=== PATIENT | male | born 1945 | race Caucasian/White ===

== ENCOUNTER 2017-08-21 11:46 | Inpatient (IN) | payer OTHER ==
[2017-08-21 12:15] VITALS: BMI 24.0
--- NOTE | 2017-08-21 12:23 | PDOC ---
History of Present Illness - General Stated Complaint: TRACH CHANGE Time Seen by Provider: 08/21/17 12:11
[2017-08-21 13:24] LABS: BASO % 1.3 % (0-2.0); HEMATOCRIT 36.4 % (35.4-49); HEMOGLOBIN 12.1 GM/dL (11.7-16.9); LYMPH % 24.8 % (8-40); MCH 30.7 pg (25.7-33.7); MCHC 33.3 g/dl (32.0-35.9); MEAN CELL VOLUME 92.3 fl (80-96); MEAN PLT VOLUME 8.4 fl (7.5-11.1); MONO % 6.8 % (3.8-10.2); NEUT % 61.1 % (42.8-82.8); PLATELET COUNT 425 K/MM3 (134-434); RBC 3.95 M/mm3 (4.00-5.60); VENOUS PH 7.39 (7.32-7.42); WHITE BLOOD COUNT 10.2 K/mm3 (4.0-10.0)
[2017-08-21 13:25] LABS: VENOUS PC02 49.7 mmHg (38-52); VENOUS PO2 21.6 mmHg (28-48)
[2017-08-21 13:37] LABS: INR 1.12 (0.82-1.09); PROTHROMBIN TIME (PATIENT) 12.6 SEC (9.98-11.88)
[2017-08-21 13:39] LABS: ACTIVATED PTT 32.9 SECONDS (26.9-34.4)
[2017-08-21 13:52] LABS: ALBUMIN 2.7 g/dl (3.4-5.0); ANION GAP 8 (8-16); BILIRUBIN,TOTAL 0.2 mg/dL (0.2-1.0); BLOOD UREA NITROGEN 23 mg/dL (7-18); CALCIUM 8.9 mg/dL (8.5-10.1); CHLORIDE 100 mmol/L (98-107); CO2 30 mmol/L (21-32); CREATININE 0.6 mg/dL (0.7-1.3); GLUCOSE,RANDOM 97 mg/dL (74-106); POTASSIUM 4.5 mmol/L (3.5-5.1); SGOT/AST 26 U/L (15-37); SGPT/ALT 49 U/L (12-78); SODIUM 138 mmol/L (136-145); TOT PROT 7.6 g/dl (6.4-8.2)
[2017-08-21 13:54] LABS: ALK PHOS 114 U/L (45-117)
--- NOTE | 2017-08-21 14:03 | PDOC ---
History of Present Illness <Slick Verdin - Last Filed: 08/21/17 15:25> - General History Source: Patient Exam Limitations: No Limitations - History of Present Illness Initial Comments: 08/21/17 15:05 The patient is a 72 year old male resident from [facility], with a significant past medical history of COPD, BPH, s/p PEG and Tracheostomy tube who presents to the emergency department with drainage from trach tube. Patient is nonverbal and is unable to provide history. As per snf records, patient has purulent yellow discharge from trach site. Upon evaluation, patient is requiring frequent suctioning. Allergies: NKA Past surgical history: Tracheostomy/Peg Tube placement. Social history: None PCP: Dr. Gonzalez <Leatha Em - Last Filed: 08/21/17 15:28> - General Chief Complaint: Trach Tube Replacement Stated Complaint: TRACH CHANGE Time Seen by Provider: 08/21/17 12:11 Past History - Past Medical History COPD: Yes Other medical history: BPH - Suicide/Smoking/Psychosocial Hx Smoking History: Unknown if ever smoked Have you smoked in the past 12 months: No Information on smoking cessation initiated: No Hx Alcohol Use: No Drug/Substance Use Hx: No Substance Use Type: None <Slick Verdin - Last Filed: 08/21/17 15:25> <Leatha Em - Last Filed: 08/21/17 15:28> - Past Medical History Allergies/Adverse Reactions: Allergies Allergy/AdvReac Type Severity Reaction Status Date / Time No Known Allergies Allergy Verified 08/21/17 12:35 Home Medications: Ambulatory Orders Acetylcysteine 20% [Mucomyst] 200 mg IH BID 08/21/17 Albuterol 2.5/Ipratropium 0.5 [Duoneb -] 1 neb NEB Q4H 08/21/17 Aspirin 81 mg PEG DAILY 08/21/17 Heparin - 5,000 unit SQ BID 08/21/17 Lactulose 10 gm PEG HS 08/21/17 Review of Systems - Review of Systems Able to Perform ROS?: No (nonverbal) <Slick Verdin - Last Filed: 08/21/17 15:25> *Physical Exam - Vital Signs Last Vital Signs Temp Pulse Resp BP Pulse Ox 99.3 F 84 22 110/78 98 08/21/17 13:08 02/01/18 13:27 08/21/17 13:27 08/21/17 13:27 08/21/17 13:27 <Slick Verdin - Last Filed: 08/21/17 15:25> - Vital Signs Last Vital Signs Temp Pulse Resp BP Pulse Ox 99.3 F 83 18 142/90 98 08/21/17 13:08 08/21/17 14:27 08/21/17 14:27 08/21/17 14:27 08/21/17 14:27 - Physical Exam Comments: 08/21/17 15:06 GENERAL: The patient is awake, alert, and fully oriented, in no acute distress. +Nonverbal with contractures sent from snf. HEAD: Normal with no signs of trauma. EYES: Pupils equal, round and reactive to light, extraocular movements intact, sclera anicteric, conjunctiva clear with no pallor. ENT: Ears normal, nares patent, oropharynx clear without exudates. Moist mucous membranes. NECK: +Trach site is clean dry with purulent drainage from within the trach site requiring suction. Normal range of motion, supple without lymphadenopathy, JVD, or masses. LUNGS: +coarse breath sounds from bilateral bases more. Greater on right side than left. Breath sounds equal, clear to auscultation bilaterally. No wheeze/ crackles. HEART: Regular rate and rhythm, normal S1 and S2 without murmur or rub. ABDOMEN: +1-2 cm skin irritation. No evidence of cellulitis. Superficial subcutaneous ecchymosis along abdomen from injection sites. Soft/nontender/ nondistended. BS wnl. No guarding or rebound. No palpable masses. No hepatosplenomegaly. EXTREMITIES: Normal range of motion, no edema. No clubbing or cyanosis. No cords, erythema, or tenderness. NEUROLOGICAL: Cranial nerves II through XII grossly intact. Normal speech. PSYCH: Normal mood, normal affect. SKIN: Warm, Dry, normal turgor, no rashes or lesions noted. <Leatha Em - Last Filed: 08/21/17 15:28> Heart Score/ECG Review #1 ECG reviewed & interpreted by me at: 14:56 General ECG Interpretation: Sinus Rhythm, Normal Rate (84), Normal Intervals ( qtc 460), No acute ischemic changes <Slick Verdin - Last Filed: 08/21/17 15:25> ED Treatment Course - LABORATORY CBC & Chemistry Diagram: 08/21/17 13:10 08/21/17 13:10 - ADDITIONAL ORDERS Additional order review: Laboratory Results 08/21/17 08/21/17 13:10 13:10 PT with INR 12.60 H INR 1.12 PTT (Actin FS) 32.9 VBG pH 7.39 POC VBG pCO2 49.7 POC VBG pO2 21.6 L Mixed VBG HCO3 29.6 H 08/21/17 13:10 RBC 3.95 L MCV 92.3 MCHC 33.3 RDW 14.0 MPV 8.4 Neutrophils % 61.1 Lymphocytes % 24.8 Monocytes % 6.8 Eosinophils % 6.0 H Basophils % 1.3 - RADIOLOGY Radiology Studies Ordered: Category Date Time Status CHEST X-RAY PORTABLE* [RAD] Stat Radiology 08/21/17 13:06 Taken <Slick Verdin - Last Filed: 08/21/17 15:25> - LABORATORY CBC & Chemistry Diagram: 08/21/17 13:10 08/21/17 13:10 - ADDITIONAL ORDERS Additional order review: Laboratory Results 08/21/17 08/21/17 08/21/17 13:10 13:10 13:10 PT with INR INR PTT (Actin FS) VBG pH 7.39 POC VBG pCO2 49.7 POC VBG pO2 21.6 L Mixed VBG HCO3 29.6 H Sodium 138 Potassium 4.5 Chloride 100 Carbon Dioxide 30 Anion Gap 8 BUN 23 H Creatinine 0.6 L Creat Clearance w eGFR > 60 Random Glucose 97 Lactic Acid 1.3 Calcium 8.9 Total Bilirubin 0.2 AST 26 ALT 49 Alkaline Phosphatase 114 Creatine Kinase 81 Troponin I < 0.02 Total Protein 7.6 Albumin 2.7 L 08/21/17 13:10 PT with INR 12.60 H INR 1.12 PTT (Actin FS) 32.9 VBG pH POC VBG pCO2 POC VBG pO2 Mixed VBG HCO3 Sodium Potassium Chloride Carbon Dioxide Anion Gap BUN Creatinine Creat Clearance w eGFR Random Glucose Lactic Acid Calcium Total Bilirubin AST ALT Alkaline Phosphatase Creatine Kinase Troponin I Total Protein Albumin 08/21/17 13:10 RBC 3.95 L MCV 92.3 MCHC 33.3 RDW 14.0 MPV 8.4 Neutrophils % 61.1 Lymphocytes % 24.8 Monocytes % 6.8 Eosinophils % 6.0 H Basophils % 1.3 <Leatha Em - Last Filed: 08/21/17 15:28> Medical Decision Making - Medical Decision Making 08/21/17 14:01 A portion of this note was documented by scribe services under my direction. I have reviewed the details of the note, within reason, and agree with the documentation with the following case summary and management plan written by me. 72-year-old male from snf bedbound, trach/panic and nonverbal sent for evaluation of purulent discharge from trach. Low-grade temp Course breath sounds Requiring frequent suctioning but O2 sats are within normal limits Sepsis protocol initiated Antibiotics as dictated by findings Likely admission 08/21/17 15:00 White count 10.2 with normal differential. Chest x-ray shows bibasilar atelectasis without acute infiltrate. Chemistries are within normal limits, including normal lactate. We'll speak with sending physician from [facility] regarding disposition and ability to give IV antibiotics at the snf. 08/21/17 15:25 Discussed with [facility] medical resident Dr. Gonzalez, states pt had copious bleeding from trach and requests bronchoscopy. Accepted for obs med/surg by Dr. Hoyos, he will consult Dr. malik . <Slick Verdin - Last Filed: 08/21/17 15:25> - Medical Decision Making 08/21/17 15:[address] [facility] to discuss case. Discharge to snf nurse Mandy Frederick. Discussed case with nurse. 08/21/17 15:08 Contacted [facility] physician-- Dr. Gonzalez at [phone]. 08/21/17 15:[address] Gonzalez at [phone] Discussed patient's case. 08/21/17 15:[address] case Dr[address] Hoyos. Will admit patient to Med Surg. <Leatha Em - Last Filed: 08/21/17 15:28> *DC/Admit/Observation/Transfer - Discharge Dispostion Admit: Yes <Slick Verdin - Last Filed: 08/21/17 15:25> <Leatha Em - Last Filed: 08/21/17 15:28> Diagnosis at time of Disposition: Tracheostomy infection - Discharge Dispostion Condition at time of disposition: Fair - Referrals Referrals: Mansoor Gonzalez MD [Primary Care Provider] - - Patient Instructions - Post Discharge Activity
[2017-08-21] MEDS ORDERED: ACETAMINOPHEN 325 MG TABLET (FP) PO PRN (16:48)
--- NOTE | 2017-08-21 17:09 | HP ---
Admitting History and Physical - Primary Care Physician PCP: Negro Hoyos - Admission History of Present Illness: The patient is a 72 year old male resident from [facility], with a significant past medical history of COPD, BPH, s/p PEG and Tracheostomy tube who presents to the emergency department with drainage from trach tube. Patient is nonverbal and is unable to provide history. As per [facility] records, patient has purulent yellow discharge and blood coming from trach site. Upon evaluation, patient is requiring frequent suctioning. Case Discussed with er physician Pt seen by me in er Lethargic / non verbal. poorly responsive but comfortable vitals stable saturating well now after frequent suctioning. History Source: Medical Record Limitations to Obtaining History: Clinical Condition - Smoking History Smoking history: Unknown if ever smoked Have you smoked in the past 12 months: No - Alcohol/Substance Use Hx Alcohol Use: No Home Medications - Allergies Allergies/Adverse Reactions: Allergies Allergy/AdvReac Type Severity Reaction Status Date / Time No Known Allergies Allergy Verified 08/21/17 12:35 - Home Medications Home Medications: Ambulatory Orders Acetylcysteine 20% [Mucomyst] 200 mg IH BID 08/21/17 Albuterol 2.5/Ipratropium 0.5 [Duoneb -] 1 neb NEB Q4H 08/21/17 Aspirin 81 mg PEG DAILY 08/21/17 Heparin - 5,000 unit SQ BID 08/21/17 Lactulose 10 gm PEG HS 08/21/17 Review of Systems Findings/Remarks: unable to do --clinical condition - Review of Systems Constitutional: reports: Lethargy Neck: reports: Other (s/p trach) Cardiovascular: reports: No Symptoms Respiratory: reports: Other Gastrointestinal: reports: Other (soft/ g tube +) Neurological: reports: Other (contracted) Physical Examination Vital Signs: Vital Signs Temperature 99.3 F 08/21/17 13:08 Pulse Rate 86 08/21/17 16:42 Respiratory Rate 20 08/21/17 16:42 Blood Pressure 139/85 08/21/17 16:42 O2 Sat by Pulse Oximetry (%) 99 08/21/17 16:42 Constitutional: Yes: No Distress, Other (letargic/ poorly responsive) Neck: Yes: Other (s/p trach) Cardiovascular: Yes: Regular Rate and Rhythm Respiratory: Yes: Other (bilateral breaths sounds.) Gastrointestinal: Yes: Soft, Other Extremities: Yes: Other (contracted) Edema: No Neurological: Yes: Other (lethargic/ non verbal) Labs: CBC, BMP 08/21/17 13:10 08/21/17 13:10 Imaging - Results Chest X-ray: Report Reviewed Problem List - Problems (1) PEG (percutaneous endoscopic gastrostomy) status Code(s): Z93.1 - GASTROSTOMY STATUS (2) Tracheostomy infection Code(s): J95.02 - INFECTION OF TRACHEOSTOMY STOMA Assessment/Plan Abx frequent suctioning pulmonary consult f/u cultures will not give heparin for dvt prophylaxis at present condition gaurded but stable will follow .
[2017-08-22 08:19] LABS: INR 1.22 (0.82-1.09); PROTHROMBIN TIME (PATIENT) 13.8 SEC (9.98-11.88)
[2017-08-22 08:33] LABS: BASO % 0.7 % (0-2.0); EOS % 0.4 % (0-4.5); HEMOGLOBIN 11.4 GM/dL (11.7-16.9); LYMPH % 14.6 % (8-40); MCHC 32.6 g/dl (32.0-35.9); MEAN CELL VOLUME 91.9 fl (80-96); MEAN PLT VOLUME 8.5 fl (7.5-11.1); MONO % 6.3 % (3.8-10.2); PLATELET COUNT 458 K/MM3 (134-434); RBC 3.81 M/mm3 (4.00-5.60); RDW 14.1 % (11.9-15.9); WHITE BLOOD COUNT 13.3 K/mm3 (4.0-10.0)
[2017-08-22 08:48] LABS: ALBUMIN 2.5 g/dl (3.4-5.0); ANION GAP 7 (8-16); BLOOD UREA NITROGEN 28 mg/dL (7-18); CALCIUM 8.4 mg/dL (8.5-10.1); CHLORIDE 102 mmol/L (98-107); CO2 27 mmol/L (21-32); CREATININE 0.7 mg/dL (0.7-1.3); GLUCOSE,RANDOM 104 mg/dL (74-106); POTASSIUM 4.4 mmol/L (3.5-5.1); SGOT/AST 35 U/L (15-37); SGPT/ALT 47 U/L (12-78); SODIUM 136 mmol/L (136-145)
[2017-08-22 08:51] LABS: ALK PHOS 91 U/L (45-117); BILIRUBIN,TOTAL 0.5 mg/dL (0.2-1.0); TOT PROT 6.5 g/dl (6.4-8.2)
--- NOTE | 2017-08-22 10:10 | EKG ---
Test Reason : Blood Pressure : / mmHG Vent. Rate : 084 BPM Atrial Rate : 084 BPM P-R Int : 000 ms QRS Dur : 094 ms QT Int : 390 ms P-R-T Axes : 000 -28 018 degrees QTc Int : 460 ms POOR DATA QUALITY, INTERPRETATION MAY BE ADVERSELY AFFECTED NORMAL SINUS RHYTHM ABNORMAL ECG NO PREVIOUS ECGS AVAILABLE Confirmed by PEGGY LOCKWOOD MD ([id number]) on 08/22/2017 10:10:15 AM Referred By: Confirmed By:PEGGY LOCKWOOD MD
--- NOTE | 2017-08-22 10:28 | PN ---
Progress Note (short form) - Note Progress Note: pt seen/ examined comfortable. non verbal. low grade temp. feeding held last night -- due to brownish fluid content guiac +ve Vital Signs Temp 99.7 F H 08/22/17 06:00 Pulse 86 08/22/17 08:21 Resp 20 08/22/17 06:00 BP 152/78 08/22/17 06:00 Pulse Ox 97 08/22/17 08:21 Intake & Output 08/21/17 08/21/17 08/22/17 11:59 23:59 11:59 Intake Total 100 Output Total 200 Balance -100 Weight 167 lb 12.8 oz 172 lb 9.6 oz Intake: Tube Irrigant 100 Output: Gastric Drainage 200 Other: Voiding Method Incontinent # Unmeasured Voids Void 1 Height 5 ft 10 in Body Mass Index (BMI) 24.0 Weight Measurement Method Patient Lift Scale Active Medications Acetaminophen (Tylenol -) 650 mg PO Q4H PRN PRN Reason: BACK PAIN Albuterol Sulfate (Ventolin 0.083% Nebulizer Soln -) 1 amp NEB Q4H PRN PRN Reason: SHORT OF BREATH/WHEEZING Fludrocortisone Acetate (Florinef -) 0.1 mg PEG DAILY SCOTT Levofloxacin (Levaquin 500 Mg Premixed Ivpb -) 500 mg in 100 mls @ 100 mls/hr IVPB DAILY SCOTT Last Admin: 08/21/17 17:10 Dose: 100 mls/hr CBC, BMP 08/22/17 07:30 08/22/17 07:30 Abnormal Lab Results 08/21/17 08/21/17 08/21/17 13:10 13:10 13:10 WBC 10.2 H RBC 3.95 L Hgb Hct Plt Count Eosinophils % 6.0 H PT with INR 12.60 H INR POC VBG pO2 21.6 L Mixed VBG HCO3 29.6 H Anion Gap BUN Creatinine Calcium Albumin 08/21/17 08/22/17 08/22/17 13:10 07:30 07:30 WBC 13.3 H D RBC 3.81 L Hgb 11.4 L Hct 35.0 L Plt Count 458 H Eosinophils % PT with INR 13.80 H INR 1.22 H POC VBG pO2 Mixed VBG HCO3 Anion Gap BUN 23 H Creatinine 0.6 L Calcium Albumin 2.7 L 08/22/17 07:30 WBC RBC Hgb Hct Plt Count Eosinophils % PT with INR INR POC VBG pO2 Mixed VBG HCO3 Anion Gap 7 L BUN 28 H D Creatinine Calcium 8.4 L Albumin 2.5 L Physical Examination Constitutional: Yes: No Distress, awake/ non verbal. dont follow commands Neck: Yes: Other (s/p trach)-- trach collar Cardiovascular: Yes: Regular Rate and Rhythm Respiratory: Yes: Other (bilateral breaths sounds.) Gastrointestinal: Yes: Soft, s/p peg Extremities: Yes: Other (contracted)- right heel/ foot - ulcer + Edema: No Neurological: Yes: Non verbal. contracted Assessment/Plan Abx increased wbcs frequent suctioning pulmonary consult - pending f/u cultures gi bleed heparin on hold hold feeding for now will consult gi and i/d would care consult local care. will follow. . Problem List - Problems (1) PEG (percutaneous endoscopic gastrostomy) status Code(s): Z93.1 - GASTROSTOMY STATUS (2) Tracheostomy infection Code(s): J95.02 - INFECTION OF TRACHEOSTOMY STOMA
[2017-08-22] MEDS: D5-1/2NS+20 MEQ KCL - 20 MEQ/1,000 ML INFUS.BAG IV SCH ×2 (11:50→22:41)
[2017-08-22] MEDS: ALBUTEROL SO4 0.083% IH SOL 2.5 MG/3 ML VIAL.NEB. NEB PRN (12:05)
--- NOTE | 2017-08-22 13:10 | CON.ID ---
Consult Consult Specialty:: infectious disease Referred by:: dr hoyos Reason for Consultation:: trach infection - History of Present Illness Chief Complaint: 72 year old mn NHR nonverbal with trach/gt. noted to have thick tracheal bloody secretions and bleeding from trach site History of Present Illness: transferred fro bleeding from trach site has thick bloody secretions low grade temperature today with wbc of 13k - History Source History Provided By: Medical Record Limitations to Obtaining History: Clinical Condition - Past Medical History Pulmonary: Yes: COPD Renal/: Yes: BPH - Alcohol/Substance Use Hx Alcohol Use: No - Smoking History Smoking history: Unknown if ever smoked Have you smoked in the past 12 months: No - Social History Usual Living Arrangement: Retirement Home Medications - Allergies Allergies/Adverse Reactions: Allergies Allergy/AdvReac Type Severity Reaction Status Date / Time No Known Allergies Allergy Verified 08/21/17 12:35 - Home Medications Home Medications: Ambulatory Orders Acetylcysteine 20% [Mucomyst] 200 mg IH BID 08/21/17 Albuterol 2.5/Ipratropium 0.5 [Duoneb -] 1 neb NEB Q4H 08/21/17 Aspirin 81 mg PEG DAILY 08/21/17 Heparin - 5,000 unit SQ BID 08/21/17 Lactulose 10 gm PEG HS 08/21/17 Family Disease History - Family Disease History Family History: Unable to Obtain Physical Exam Vital Signs: Vital Signs Temperature 99.7 F H 08/22/17 06:00 Pulse Rate 86 08/22/17 08:21 Respiratory Rate 20 08/22/17 06:00 Blood Pressure 152/78 08/22/17 06:00 O2 Sat by Pulse Oximetry (%) 97 08/22/17 08:21 Constitutional: Yes: No Distress, Calm Eyes: Yes: WNL HENT: Yes: Atraumatic, Normocephalic Neck: Yes: Trachea Midline, Other (trach with bloody thick secretions) Cardiovascular: Yes: Regular Rate and Rhythm Respiratory: Yes: CTA Bilaterally Gastrointestinal: Yes: Normal Bowel Sounds, Soft, Other (+gt) Extremities: Yes: WNL, Other (contractions of the arms right more then left) Psychiatric: Yes: Alert Labs: CBC, BMP 08/22/17 07:30 08/22/17 07:30 Microbiology 08/21/17 13:10 Blood - Peripheral Venous Blood Culture - Preliminary NO GROWTH OBTAINED AFTER 24 HOURS, INCUBATION TO CONTINUE FOR 4 DAYS. 08/21/17 13:10 Blood - Peripheral Venous Blood Culture - Preliminary NO GROWTH OBTAINED AFTER 24 HOURS, INCUBATION TO CONTINUE FOR 4 DAYS. Imaging - Results Chest X-ray: Report Reviewed, Image Reviewed Problem List - Problems (1) Tracheobronchitis Code(s): J40 - BRONCHITIS, NOT SPECIFIED ACUTE OR CHRONIC (2) COPD (chronic obstructive pulmonary disease) Code(s): J44.9 - CHRONIC OBSTRUCTIVE PULMONARY DISEASE, UNSPECIFIED Assessment/Plan unasyn ENT to see for trach change - d/w Dr Hoyos, will order ENT evaluation COPD GT
--- NOTE | 2017-08-22 13:29 | PN ---
Progress Note (short form) - Note Progress Note: PULMONARY CONSULTATION DICTATED 08/22/17 IMP ACUTE TRACHEOBRONCHITIS S/P TRACH COPD BPH PLAN IV ANTIBIOTICS O2 BRONCHODILATORS CULTURES ENT EVALUATION DR NIELSEN Problem List - Problems (1) Tracheobronchitis Code(s): J40 - BRONCHITIS, NOT SPECIFIED ACUTE OR CHRONIC (2) PEG (percutaneous endoscopic gastrostomy) status Code(s): Z93.1 - GASTROSTOMY STATUS (3) Tracheostomy infection Code(s): J95.02 - INFECTION OF TRACHEOSTOMY STOMA (4) COPD (chronic obstructive pulmonary disease) Code(s): J44.9 - CHRONIC OBSTRUCTIVE PULMONARY DISEASE, UNSPECIFIED
--- NOTE | 2017-08-22 14:12 | CONS ---
DATE OF CONSULTATION: 08/22/2017 REFERRING PHYSICIAN: Negro Hoyos MD HISTORY: The patient is a 72-year-old white male prison resident with a past medical history of chronic obstructive pulmonary disease, history of respiratory failure status post tracheostomy, BPH admitted to [facility] with drainage from the tracheostomy tube. The patient initially was unable to provide any history. [facility], the patient had purulent yellow drainage from the tracheostomy site. He was also noted on arrival to the ER to have increased chronic secretions requiring frequent suctioning. According to the ER records, the patient had copious bleeding from the tracheostomy and was transferred over to request bronchoscopy. No further history is available at this time. PAST MEDICAL HISTORY: Again, includes COPD, BPH, status post PEG, status post tracheostomy. REVIEW OF SYSTEMS: Unable to obtain. CURRENT MEDICATIONS: Include Florinef, Tylenol, Levaquin, albuterol, and potassium chloride. PHYSICAL EXAMINATION: General: The patient is a thin white male well developed, awake, nonverbal in no acute distress. Vital Signs: He is currently afebrile. Temperature 99.7, respiratory rate 20, O2 saturation 97% on tracheostomy collar. HEENT: Normocephalic and atraumatic. Neck: Supple. Heart: Regular S1, S2. Chest: Bilateral rhonchi. Abdomen: Soft. Bowel sounds are positive. Extremities: No cyanosis or edema. LABORATORIES: WBC 13.3, hemoglobin 11.4, hematocrit 35, platelet count 458,000. Venous blood gas 7.39, PCO2 of 49, PO2 of 21, bicarbonate of 29, INR 1.22, BUN 28, creatinine 0.7. Chest x-ray: Right basilar atelectatic changes. No acute infiltrates or effusions. IMPRESSION: 1. Probably tracheobronchitis, tracheitis. 2. History of chronic obstructive pulmonary disease. 3. Status post tracheostomy. 4. Status post percutaneous endoscopic gastrostomy. PLAN: Antibiotics. Pulmonary toilet. Obtain cultures. If the patient should develop tracheal bleeding, would recommend ENT evaluation. LESLEY NIELSEN M.D. [id number]
[2017-08-22] MEDS: AMPICILLIN NA/SULBACTAM NA 1.5 GM in SODIUM CHLORIDE 100 ML IVPB SCH ×2 (15:30→22:40)
[2017-08-22] MEDS ORDERED: PT OWN MED DRAWER 7, Y5N ONE ×3 (15:31→22:29)
--- NOTE | 2017-08-22 17:14 | CON.GI ---
Consult Consult Specialty:: GI Referred by:: Dr Negro Hoyos - History of Present Illness History of Present Illness: 72 y/o male was admiited for brochitis was noted to have 200cc of coffee ground residual via g-tube. - Past Medical History Pulmonary: Yes: COPD Renal/: Yes: BPH - Alcohol/Substance Use Hx Alcohol Use: No - Smoking History Smoking history: Unknown if ever smoked Have you smoked in the past 12 months: No - Social History Usual Living Arrangement: Skilled Nursing Home Medications - Allergies Allergies/Adverse Reactions: Allergies Allergy/AdvReac Type Severity Reaction Status Date / Time No Known Allergies Allergy Verified 08/21/17 12:35 - Home Medications Home Medications: Ambulatory Orders Acetylcysteine 20% [Mucomyst] 200 mg IH BID 08/21/17 Albuterol 2.5/Ipratropium 0.5 [Duoneb -] 1 neb NEB Q4H 08/21/17 Aspirin 81 mg PEG DAILY 08/21/17 Heparin - 5,000 unit SQ BID 08/21/17 Lactulose 10 gm PEG HS 08/21/17 Physical Exam-GI Vital Signs: Vital Signs Temperature 98.5 F 08/22/17 15:22 Pulse Rate 95 H 08/22/17 15:22 Respiratory Rate 18 08/22/17 15:22 Blood Pressure 110/68 08/22/17 15:22 O2 Sat by Pulse Oximetry (%) 97 08/22/17 09:00 Constitutional: Yes: No Distress Eyes: Yes: Conjunctiva Clear HENT: Yes: Atraumatic Neck: Yes: Supple Cardiovascular: Yes: Regular Rate and Rhythm Respiratory: Yes: CTA Bilaterally Gastrointestinal Inspection: Yes: Other (clean Peg site) ...Palpate: Yes: Soft. No: Firm/Rigid, Guarding, Hepatomegaly, Mass, Pulsatile Mass, Splenomegaly, Tenderness Labs: CBC, BMP 08/22/17 07:30 08/22/17 07:30 INR, PTT INR 1.22 (0.82-1.09) H 08/22/17 07:30 Assessment/Plan Coffee ground return guaiac positive r/o secondary to stress gastritis,ileus, severe gastroduodenal dysmotility R>KUB r/o impaction ileus IV Protonix and Reglan may start to use PEG and check residuals
--- NOTE | 2017-08-22 17:24 | CON.ENT ---
Consult Consult Specialty:: ENT Reason for Consultation:: trach eval - History of Present Illness Chief Complaint: coughing up blood History of Present Illness: 72M with limited history. I attempted to call his Guardian but there was no answer. He came from facility with increased tracheal secretions, some bloody. It is unclear how old his tracheostomy is. He is nonverbal and cannot provide history. - History Source History Provided By: Medical Record Limitations to Obtaining History: Dementia - Past Medical History Pulmonary: Yes: COPD Renal/: Yes: BPH - Alcohol/Substance Use Hx Alcohol Use: No - Smoking History Smoking history: Unknown if ever smoked Have you smoked in the past 12 months: No - Social History Usual Living Arrangement: Senior Living Home Medications - Allergies Allergies/Adverse Reactions: Allergies Allergy/AdvReac Type Severity Reaction Status Date / Time No Known Allergies Allergy Verified 08/21/17 12:35 - Home Medications Home Medications: Ambulatory Orders Acetylcysteine 20% [Mucomyst] 200 mg IH BID 08/21/17 Albuterol 2.5/Ipratropium 0.5 [Duoneb -] 1 neb NEB Q4H 08/21/17 Aspirin 81 mg PEG DAILY 08/21/17 Heparin - 5,000 unit SQ BID 08/21/17 Lactulose 10 gm PEG HS 08/21/17 Physical Exam-ENT Vital Signs: Vital Signs Temperature 98.5 F 08/22/17 15:22 Pulse Rate 95 H 08/22/17 15:22 Respiratory Rate 18 08/22/17 15:22 Blood Pressure 110/68 08/22/17 15:22 O2 Sat by Pulse Oximetry (%) 97 08/22/17 09:00 Constitutional: Yes: No Distress, Other (in floor bed (no ventilator) with pronation and flexion of wrists. nonresponsive. doesn't cooperate with exam) Face: Yes: WNL Eyes: Yes: WNL Nose: Yes: WNL, Septum Deviated Nasal Passage: Yes: WNL Oral/Pharynx: Yes: Other (limited. he closed his mouth when I attempt to examine ) Outer Ear: Yes: WNL Ear Canal: Yes: Cerumen (doesn't let me look at left ear - he keeps this against pillow) Neck: Yes: Other (Portex ID [id number], cuffed with balloon inflated. in position with ties, secure. appears well-establish. no peristomal infection or granulation tissue. no crepitance. he frequently expectorates (through trach) thick brown secretions, slightly bloody.) Neurological: Yes: Other (limited by his mask-facies and failure to cooperate) Imaging - Results Chest X-ray: Report Reviewed (bibasilar atelectasis) Other: Other (Tracheobronchoscopy: Passed flexible fiberoptic laryngoscope through tracheostoma past richard to the left and right mainstem bronchi, then withdrew. No desaturations. No cough-reflex triggered. Findings: 1. Focal granulation tissue/mucositis at posterior trachea inf to tube. 2. Thick brown secretions in all bronchi at the entrances) Problem List - Problems (1) Tracheobronchitis Assessment/Plan: Tracheostomy itself is fine. -Suggest switching to Red Robnel catheters for suctioning. These tips are softer than the rather pointy, bevelled ones in the standard tracheostomy suction catheter kits. Much of his bloody secretions are likely from back- walling the trachea with the pointy suction catheters, and this should improve with more gentle suctioning. -He has purulent bronchitis. This is where his secretions are most assuredly coming. Diminished cough reflex noted during endoscopy likely along with his mental status -- will need more pulmonary toilet as he is not expectorating sufficiently himself - ID consulting. Treatment per cultures and ID recommendations. -Continue with peristomal trach care with replacement of trach gauze sponges as frequently as needed. If these sponges sit with purulent secretions, he may develop a reactive cellulitis. Outpatient followup advised with his operating surgeon who placed the tracheostomy. Thank you for this consultation. Code(s): J40 - BRONCHITIS, NOT SPECIFIED ACUTE OR CHRONIC
[2017-08-22] MEDS ORDERED: PNEUMOC 13-VAL CONJ-DIP CRM/PF 0.5 ML DISP.SYRIN IM ONE (18:11)
[2017-08-22] MEDS ORDERED: INSULIN (NOVOLOG) ASPART 100 UNITS/ML 10ML VIAL ONE (18:34)
[2017-08-22] MEDS: METOCLOPRAMIDE HCL INJECTION 10 MG/2 ML VIAL IVPUSH SCH (18:38)
[2017-08-22] MEDS ORDERED: PANTOPRAZOLE SODIUM 40 MG in SODIUM CHLORIDE 100 ML IVPB SCH (22:00)
[2017-08-22] MEDS: PANTOPRAZOLE SODIUM 40 MG VIAL IVPUSH SCH (22:41)
[2017-08-23] MEDS: AMPICILLIN NA/SULBACTAM NA 1.5 GM in SODIUM CHLORIDE 100 ML IVPB SCH ×4 (02:31→21:53)
[2017-08-23] MEDS: METOCLOPRAMIDE HCL INJECTION 10 MG/2 ML VIAL IVPUSH SCH ×3 (02:31→17:32)
[2017-08-23 08:14] LABS: BASO % 0.9 % (0-2.0); EOS % 3.7 % (0-4.5); HEMATOCRIT 33.7 % (35.4-49); LYMPH % 29.9 % (8-40); MCH 30.4 pg (25.7-33.7); MCHC 32.6 g/dl (32.0-35.9); MEAN CELL VOLUME 93.1 fl (80-96); MEAN PLT VOLUME 8.2 fl (7.5-11.1); MONO % 8.3 % (3.8-10.2); NEUT % 57.2 % (42.8-82.8); PLATELET COUNT 461 K/MM3 (134-434); RBC 3.62 M/mm3 (4.00-5.60); RDW 14.2 % (11.9-15.9); WHITE BLOOD COUNT 11.2 K/mm3 (4.0-10.0)
[2017-08-23 08:54] LABS: ALBUMIN 2.4 g/dl (3.4-5.0); ANION GAP 6 (8-16); BILIRUBIN,TOTAL 0.3 mg/dL (0.2-1.0); BLOOD UREA NITROGEN 24 mg/dL (7-18); CHLORIDE 104 mmol/L (98-107); CO2 27 mmol/L (21-32); CREATININE 0.7 mg/dL (0.7-1.3); GLUCOSE,RANDOM 107 mg/dL (74-106); POTASSIUM 4.4 mmol/L (3.5-5.1); SGOT/AST 31 U/L (15-37); SGPT/ALT 45 U/L (12-78); SODIUM 137 mmol/L (136-145); TOT PROT 6.4 g/dl (6.4-8.2)
[2017-08-23 08:55] LABS: ALK PHOS 88 U/L (45-117)
[2017-08-23] MEDS ORDERED: PT OWN MED DRAWER 7, Y5N ONE ×5 (10:18→21:29)
[2017-08-23] MEDS: D5-1/2NS+20 MEQ KCL - 20 MEQ/1,000 ML INFUS.BAG IV SCH ×2 (10:23→21:54)
[2017-08-23] MEDS: PANTOPRAZOLE SODIUM 40 MG VIAL IVPUSH SCH ×2 (10:26→21:54)
[2017-08-23] MEDS: FLUDROCORTISONE ACETATE 0.1 MG TABLET (FP) PEG SCH (10:28)
--- NOTE | 2017-08-23 12:09 | PN ---
Progress Note (short form) - Note Progress Note: pt seen/ examined comfortable. non verbal. All consults noted/ appreciated. no distress. Vital Signs Temp 98.9 F 08/23/17 09:42 Pulse 74 08/23/17 11:45 Resp 19 08/23/17 09:42 BP 131/76 08/23/17 09:42 Pulse Ox 100 08/23/17 11:45 Intake & Output 08/22/17 08/23/17 08/23/17 23:59 11:59 23:59 Intake Total 800 Balance 800 Intake: IV 600 D5-1/2NS+20 MEQ KCL - 20 600 meq In 1,000 ml @ 100 mls /hr IV ASDIR [facility] Rx#: [id number] IVPB 200 Oral 0 Other: Voiding Method Incontinent Incontinent # Unmeasured Voids Void 1 1 Bowel Movement No No Active Medications Acetaminophen (Tylenol -) 650 mg PO Q4H PRN PRN Reason: BACK PAIN Albuterol Sulfate (Ventolin 0.083% Nebulizer Soln -) 1 amp NEB Q4H PRN PRN Reason: SHORT OF BREATH/WHEEZING Last Admin: 08/22/17 12:05 Dose: 1 amp Fludrocortisone Acetate (Florinef -) 0.1 mg PEG DAILY [facility] Last Admin: 08/23/17 10:28 Dose: 0.1 mg Potassium Chloride/Dextrose/Sod Cl (D5-1/2ns+20 Meq Kcl -) 20 meq in 1,000 mls @ 100 mls/hr IV ASDIR [facility] Last Admin: 08/23/17 10:23 Dose: 100 mls/hr Ampicillin Sodium/Sulbactam (Sodium 1.5 gm/ Sodium Chloride) 100 mls @ 200 mls/ hr IVPB Q6H-IV [facility] Last Admin: 08/23/17 10:45 Dose: 200 mls/hr Metoclopramide HCl (Reglan Injection -) 10 mg IVPUSH Q8H-IV [facility] Last Admin: 08/23/17 10:25 Dose: 10 mg Pantoprazole Sodium (Protonix Iv) 40 mg IVPUSH BID [facility] Last Admin: 08/23/17 10:26 Dose: 40 mg CBC, BMP 08/23/17 06:45 08/23/17 06:45 Microbiology 08/21/17 13:10 Blood Culture - Preliminary Blood - Peripheral Venous NO GROWTH OBTAINED AFTER 24 HOURS, INCUBATION TO CONTINUE FOR 4 DAYS. 08/21/17 13:10 Blood Culture - Preliminary Blood - Peripheral Venous NO GROWTH OBTAINED AFTER 24 HOURS, INCUBATION TO CONTINUE FOR 4 DAYS. Physical Examination Constitutional: Yes: No Distress, awake/ non verbal. Neck: Yes: Other (s/p trach)-- trach collar Cardiovascular: Yes: Regular Rate and Rhythm Respiratory: Yes: Other (bilateral breaths sounds.) Gastrointestinal: Yes: Soft, s/p peg Extremities: Yes: Other (contracted)- right heel/ foot - ulcer + Edema: No Neurological: Yes: Non verbal. contracted Assessment/Plan Abx. frequent suctioning f/u cultures- ve so far. would care consult local care. will follow. . Problem List - Problems (1) PEG (percutaneous endoscopic gastrostomy) status Code(s): Z93.1 - GASTROSTOMY STATUS (2) Tracheostomy infection Code(s): J95.02 - INFECTION OF TRACHEOSTOMY STOMA
--- NOTE | 2017-08-23 12:20 | PN ---
Progress Note (short form) - Note Progress Note: PULMONARY Appears comfortable. No fevers recorded. Last Vital Signs Temp Pulse Resp BP Pulse Ox 98.9 F 74 19 131/76 100 08/23/17 09:42 08/23/17 11:45 08/23/17 09:42 08/23/17 09:42 08/23/17 11:45 Gen: breathing nonlabored on trach collar Heart: RRR Lung: scattered rhonchi Abd: soft, nontender Ext: no edema CBC, BMP 08/23/17 06:45 08/23/17 06:45 Active Medications Acetaminophen (Tylenol -) 650 mg PO Q4H PRN PRN Reason: BACK PAIN Albuterol Sulfate (Ventolin 0.083% Nebulizer Soln -) 1 amp NEB Q4H PRN PRN Reason: SHORT OF BREATH/WHEEZING Last Admin: 08/22/17 12:05 Dose: 1 amp Fludrocortisone Acetate (Florinef -) 0.1 mg PEG DAILY [facility] Last Admin: 08/23/17 10:28 Dose: 0.1 mg Potassium Chloride/Dextrose/Sod Cl (D5-1/2ns+20 Meq Kcl -) 20 meq in 1,000 mls @ 100 mls/hr IV ASDIR [facility] Last Admin: 08/23/17 10:23 Dose: 100 mls/hr Ampicillin Sodium/Sulbactam (Sodium 1.5 gm/ Sodium Chloride) 100 mls @ 200 mls/ hr IVPB Q6H-IV [facility] Last Admin: 08/23/17 10:45 Dose: 200 mls/hr Metoclopramide HCl (Reglan Injection -) 10 mg IVPUSH Q8H-IV [facility] Last Admin: 08/23/17 10:25 Dose: 10 mg Pantoprazole Sodium (Protonix Iv) 40 mg IVPUSH BID [facility] Last Admin: 08/23/17 10:26 Dose: 40 mg A/P Acute Tracheobronchitis Chronic Respiratory Failure s/p Tracheostomy COPD BPH - continue antibiotics - tracheal cultures - inhaled bronchodilators as needed - O2 to keep Spo2 >90% - DVT prophylaxis
[2017-08-24] MEDS ORDERED: PT OWN MED DRAWER 7, Y5N ONE ×5 (00:57→20:56)
[2017-08-24] MEDS: METOCLOPRAMIDE HCL INJECTION 10 MG/2 ML VIAL IVPUSH SCH ×3 (01:20→17:48)
[2017-08-24] MEDS: AMPICILLIN NA/SULBACTAM NA 1.5 GM in SODIUM CHLORIDE 100 ML IVPB SCH ×4 (03:30→21:49)
[2017-08-24 08:19] LABS: BASO % 1.4 % (0-2.0); EOS % 6.9 % (0-4.5); HEMATOCRIT 30.2 % (35.4-49); HEMOGLOBIN 9.9 GM/dL (11.7-16.9); LYMPH % 32.2 % (8-40); MCH 30.6 pg (25.7-33.7); MCHC 32.8 g/dl (32.0-35.9); MEAN CELL VOLUME 93.2 fl (80-96); MONO % 7.8 % (3.8-10.2); NEUT % 51.7 % (42.8-82.8); PLATELET COUNT 407 K/MM3 (134-434); RBC 3.24 M/mm3 (4.00-5.60); RDW 14.1 % (11.9-15.9); WHITE BLOOD COUNT 7.4 K/mm3 (4.0-10.0)
[2017-08-24 08:40] LABS: ALBUMIN 2.1 g/dl (3.4-5.0); ANION GAP 8 (8-16); BLOOD UREA NITROGEN 14 mg/dL (7-18); CALCIUM 7.9 mg/dL (8.5-10.1); CHLORIDE 106 mmol/L (98-107); CO2 25 mmol/L (21-32); CREATININE 0.6 mg/dL (0.7-1.3); GLUCOSE,RANDOM 99 mg/dL (74-106); POTASSIUM 4.2 mmol/L (3.5-5.1); SGOT/AST 33 U/L (15-37); SGPT/ALT 45 U/L (12-78); SODIUM 139 mmol/L (136-145); TOT PROT 5.9 g/dl (6.4-8.2)
[2017-08-24 08:42] LABS: ALK PHOS 83 U/L (45-117); BILIRUBIN,TOTAL 0.7 mg/dL (0.2-1.0)
[2017-08-24] MEDS: D5-1/2NS+20 MEQ KCL - 20 MEQ/1,000 ML INFUS.BAG IV SCH (09:29)
[2017-08-24] MEDS: PANTOPRAZOLE SODIUM 40 MG VIAL IVPUSH SCH ×2 (09:29→21:49)
[2017-08-24] MEDS: FLUDROCORTISONE ACETATE 0.1 MG TABLET (FP) PEG SCH (09:30)
--- NOTE | 2017-08-24 12:10 | PN ---
Progress Note (short form) - Note Progress Note: PULMONARY Pt nonverbal. Appears comfortable. No fevers recorded. Last Vital Signs Temp Pulse Resp BP Pulse Ox 98.3 F 69 20 104/56 100 08/24/17 09:45 08/24/17 09:45 08/24/17 09:45 08/24/17 09:45 08/24/17 09:00 Gen: breathing nonlabored on trach collar Heart: RRR Lung: scattered rhonchi Abd: soft, nontender Ext: no edema CBC, BMP 08/24/17 07:15 08/24/17 07:15 Active Medications Acetaminophen (Tylenol -) 650 mg PO Q4H PRN PRN Reason: BACK PAIN Albuterol Sulfate (Ventolin 0.083% Nebulizer Soln -) 1 amp NEB Q4H PRN PRN Reason: SHORT OF BREATH/WHEEZING Last Admin: 08/22/17 12:05 Dose: 1 amp Fludrocortisone Acetate (Florinef -) 0.1 mg PEG DAILY [facility] Last Admin: 08/24/17 09:30 Dose: 0.1 mg Ampicillin Sodium/Sulbactam (Sodium 1.5 gm/ Sodium Chloride) 100 mls @ 200 mls/ hr IVPB Q6H-IV [facility] Last Admin: 08/24/17 09:29 Dose: 200 mls/hr Metoclopramide HCl (Reglan Injection -) 10 mg IVPUSH Q8H-IV [facility] Last Admin: 08/24/17 09:29 Dose: 10 mg Pantoprazole Sodium (Protonix Iv) 40 mg IVPUSH BID [facility] Last Admin: 08/24/17 09:29 Dose: 40 mg A/P Acute Tracheobronchitis Chronic Respiratory Failure s/p Tracheostomy COPD BPH - continue antibiotics - f/u cultures - inhaled bronchodilators as needed - O2 to keep Spo2 >90% - DVT prophylaxis
--- NOTE | 2017-08-24 12:11 | PN ---
Progress Note (short form) - Note Progress Note: pt seen/ examined comfortable. non verbal. no distress. Vital Signs Temp 98.3 F 08/24/17 09:45 Pulse 69 08/24/17 09:45 Resp 20 08/24/17 09:45 BP 104/56 08/24/17 09:45 Pulse Ox 100 08/24/17 09:00 Intake & Output 08/23/17 08/24/17 08/24/17 23:59 11:59 23:59 Intake Total 1200 1300 Balance 1200 1300 Intake: IV 1100 1100 D5-1/2NS+20 MEQ KCL - 20 1100 1100 meq In 1,000 ml @ 100 mls /hr IV ASDIR [facility] Rx#: [id number] IVPB 100 200 Oral 0 Other: Voiding Method Incontinent Incontinent # Unmeasured Voids Void 2 2 Bowel Movement No Active Medications Acetaminophen (Tylenol -) 650 mg PO Q4H PRN PRN Reason: BACK PAIN Albuterol Sulfate (Ventolin 0.083% Nebulizer Soln -) 1 amp NEB Q4H PRN PRN Reason: SHORT OF BREATH/WHEEZING Last Admin: 08/22/17 12:05 Dose: 1 amp Fludrocortisone Acetate (Florinef -) 0.1 mg PEG DAILY [facility] Last Admin: 08/24/17 09:30 Dose: 0.1 mg Ampicillin Sodium/Sulbactam (Sodium 1.5 gm/ Sodium Chloride) 100 mls @ 200 mls/ hr IVPB Q6H-IV [facility] Last Admin: 08/24/17 09:29 Dose: 200 mls/hr Metoclopramide HCl (Reglan Injection -) 10 mg IVPUSH Q8H-IV [facility] Last Admin: 08/24/17 09:29 Dose: 10 mg Pantoprazole Sodium (Protonix Iv) 40 mg IVPUSH BID [facility] Last Admin: 08/24/17 09:29 Dose: 40 mg CBC, BMP 08/24/17 07:15 08/24/17 07:15 Microbiology 08/21/17 13:10 Blood Culture - Preliminary Blood - Peripheral Venous NO GROWTH OBTAINED AFTER 48 HOURS, INCUBATION TO CONTINUE FOR 3 DAYS. 08/21/17 13:10 Blood Culture - Preliminary Blood - Peripheral Venous NO GROWTH OBTAINED AFTER 48 HOURS, INCUBATION TO CONTINUE FOR 3 DAYS. Physical Examination Constitutional: Yes: No Distress, awake/ non verbal. Neck: Yes: Other (s/p trach)-- trach collar Cardiovascular: Yes: Regular Rate and Rhythm Respiratory: Yes: Other (bilateral breaths sounds.) Gastrointestinal: Yes: Soft, s/p peg Extremities: Yes: Other (contracted)- right heel/ foot - ulcer + Edema: No Neurological: Yes: Non verbal. contracted Assessment/Plan Abx. frequent suctioning f/u cultures- ve so far. would care consult-pending local care. restart on feeding d/c fluids f/u cbc/ lytes will follow. . Problem List - Problems (1) PEG (percutaneous endoscopic gastrostomy) status Code(s): Z93.1 - GASTROSTOMY STATUS (2) Tracheostomy infection Code(s): J95.02 - INFECTION OF TRACHEOSTOMY STOMA
[2017-08-24] MEDS ORDERED: SODIUM PHOSPHATE/NA BIPHOS 133 ML ENEMA PR ONE (15:16)
[2017-08-24] MEDS: POLYETHYLENE GLYCOL 3350 119 GM BTL GT SCH (21:50)
[2017-08-25] MEDS ORDERED: PT OWN MED DRAWER 7, Y5N ONE (02:41)
[2017-08-25] MEDS: METOCLOPRAMIDE HCL INJECTION 10 MG/2 ML VIAL IVPUSH SCH ×3 (02:48→17:49)
[2017-08-25] MEDS: AMPICILLIN NA/SULBACTAM NA 1.5 GM in SODIUM CHLORIDE 100 ML IVPB SCH ×4 (02:48→21:26)
[2017-08-25 08:44] LABS: BASO % 1.3 % (0-2.0); EOS % 6.9 % (0-4.5); HEMATOCRIT 30.3 % (35.4-49); LYMPH % 29.8 % (8-40); MCH 30.6 pg (25.7-33.7); MCHC 32.9 g/dl (32.0-35.9); MEAN CELL VOLUME 93.1 fl (80-96); MONO % 7.2 % (3.8-10.2); NEUT % 54.8 % (42.8-82.8); PLATELET COUNT 431 K/MM3 (134-434); RBC 3.25 M/mm3 (4.00-5.60); RDW 13.9 % (11.9-15.9); WHITE BLOOD COUNT 7.9 K/mm3 (4.0-10.0)
[2017-08-25 09:07] LABS: ALBUMIN 2.2 g/dl (3.4-5.0); ANION GAP 8 (8-16); BILIRUBIN,TOTAL 0.3 mg/dL (0.2-1.0); BLOOD UREA NITROGEN 11 mg/dL (7-18); CALCIUM 8.5 mg/dL (8.5-10.1); CHLORIDE 105 mmol/L (98-107); CO2 27 mmol/L (21-32); CREATININE 0.7 mg/dL (0.7-1.3); GLUCOSE,RANDOM 101 mg/dL (74-106); POTASSIUM 4.2 mmol/L (3.5-5.1); SGOT/AST 62 U/L (15-37); SGPT/ALT 85 U/L (12-78); SODIUM 140 mmol/L (136-145)
[2017-08-25 09:11] LABS: ALK PHOS 110 U/L (45-117); TOT PROT 5.8 g/dl (6.4-8.2)
[2017-08-25] MEDS: POLYETHYLENE GLYCOL 3350 119 GM BTL GT SCH ×2 (09:35→21:26)
[2017-08-25] MEDS: PANTOPRAZOLE SODIUM 40 MG VIAL IVPUSH SCH ×2 (09:35→21:26)
[2017-08-25] MEDS: FLUDROCORTISONE ACETATE 0.1 MG TABLET (FP) PEG SCH (09:36)
--- NOTE | 2017-08-25 09:40 | PN ---
Progress Note (short form) - Note Progress Note: pt seen/ examined comfortable. non verbal. no distress. afebrile tolerating feeding. +ve secretions from trach. Vital Signs Temp 98.7 F 08/25/17 06:00 Pulse 80 08/25/17 06:00 Resp 18 08/25/17 06:00 BP 133/54 08/25/17 06:00 Pulse Ox 99 08/24/17 21:00 Intake & Output 08/24/17 08/24/17 08/25/17 11:59 23:59 11:59 Intake Total 1300 1000 850 Balance 1300 1000 850 Intake: IV 1100 700 D5-1/2NS+20 MEQ KCL - 20 1100 700 meq In 1,000 ml @ 100 mls /hr IV ASDIR [facility] Rx#: [id number] IVPB 200 200 200 Oral 0 Tube Feeding 60 430 Tube Irrigant 40 220 Other: Voiding Method Incontinent Incontinent # Unmeasured Voids Void 2 1 2 Bowel Movement Yes Active Medications Acetaminophen (Tylenol -) 650 mg PO Q4H PRN PRN Reason: BACK PAIN Albuterol Sulfate (Ventolin 0.083% Nebulizer Soln -) 1 amp NEB Q4H PRN PRN Reason: SHORT OF BREATH/WHEEZING Last Admin: 08/22/17 12:05 Dose: 1 amp Fludrocortisone Acetate (Florinef -) 0.1 mg PEG DAILY [facility] Last Admin: 08/24/17 09:30 Dose: 0.1 mg Ampicillin Sodium/Sulbactam (Sodium 1.5 gm/ Sodium Chloride) 100 mls @ 200 mls/ hr IVPB Q6H-IV [facility] Last Admin: 08/25/17 08:43 Dose: 200 mls/hr Metoclopramide HCl (Reglan Injection -) 10 mg IVPUSH Q8H-IV [facility] Last Admin: 08/25/17 02:48 Dose: 10 mg Pantoprazole Sodium (Protonix Iv) 40 mg IVPUSH BID [facility] Last Admin: 08/24/17 21:49 Dose: 40 mg Polyethylene Glycol (Miralax (For Daily Use) -) 34 gm GT BID REPLACED [facility] Last Admin: 08/24/17 21:50 Dose: 34 gm CBC, BMP 08/25/17 07:00 08/25/17 07:00 Microbiology 08/23/17 13:31 Gram Stain - Final Sputum - Endotracheal Suction W/O Vent 08/21/17 13:10 Blood Culture - Preliminary Blood - Peripheral Venous NO GROWTH OBTAINED AFTER 72 HOURS, INCUBATION TO CONTINUE FOR 2 DAYS. 08/21/17 13:10 Blood Culture - Preliminary Blood - Peripheral Venous NO GROWTH OBTAINED AFTER 72 HOURS, INCUBATION TO CONTINUE FOR 2 DAYS. Physical Examination Constitutional: Yes: No Distress, awake/ non verbal. Neck: Yes: Other (s/p trach)-- trach collar Cardiovascular: Yes: Regular Rate and Rhythm Respiratory: Yes: Other (bilateral breaths sounds.) Gastrointestinal: Yes: Soft, s/p peg Extremities: Yes: Other (contracted)- right heel/ foot - ulcer + Edema: No Neurological: Yes: Non verbal. contracted Assessment/Plan Abx. frequent suctioning. f/u cultures- would care consult-pending. local care. i/d to follow overall better anticipate d/c in 1-2 days pt is total care- functional quadriplegia. . Problem List - Problems (1) PEG (percutaneous endoscopic gastrostomy) status Code(s): Z93.1 - GASTROSTOMY STATUS (2) Tracheostomy infection Code(s): J95.02 - INFECTION OF TRACHEOSTOMY STOMA (3) Functional quadriplegia Code(s): R53.2 - FUNCTIONAL QUADRIPLEGIA
--- NOTE | 2017-08-25 12:00 | PN ---
Progress Note (short form) - Note Progress Note: PULMONARY Clinically improving. Pt nonverbal. Appears comfortable. No fevers recorded. Last Vital Signs Temp Pulse Resp BP Pulse Ox 98.9 F 74 18 124/53 97 08/25/17 10:11 08/25/17 10:11 08/25/17 10:11 08/25/17 10:11 08/25/17 09:53 Gen: breathing nonlabored on trach collar Heart: RRR Lung: scattered rhonchi Abd: soft, nontender Ext: no edema CBC, BMP 08/25/17 07:00 08/25/17 07:00 Active Medications Acetaminophen (Tylenol -) 650 mg PO Q4H PRN PRN Reason: BACK PAIN Albuterol Sulfate (Ventolin 0.083% Nebulizer Soln -) 1 amp NEB Q4H PRN PRN Reason: SHORT OF BREATH/WHEEZING Last Admin: 08/22/17 12:05 Dose: 1 amp Fludrocortisone Acetate (Florinef -) 0.1 mg PEG DAILY [facility] Last Admin: 08/25/17 09:36 Dose: 0.1 mg Ampicillin Sodium/Sulbactam (Sodium 1.5 gm/ Sodium Chloride) 100 mls @ 200 mls/ hr IVPB Q6H-IV [facility] Last Admin: 08/25/17 08:43 Dose: 200 mls/hr Metoclopramide HCl (Reglan Injection -) 10 mg IVPUSH Q8H-IV [facility] Last Admin: 08/25/17 09:40 Dose: 10 mg Pantoprazole Sodium (Protonix Iv) 40 mg IVPUSH BID [facility] Last Admin: 08/25/17 09:35 Dose: 40 mg Polyethylene Glycol (Miralax (For Daily Use) -) 34 gm GT BID [facility] Last Admin: 08/25/17 09:35 Dose: 34 gm A/P Acute Tracheobronchitis Chronic Respiratory Failure s/p Tracheostomy COPD BPH - continue antibiotics - inhaled bronchodilators as needed - O2 to keep Spo2 >90% - DVT prophylaxis
--- NOTE | 2017-08-25 15:20 | PN ---
Progress Note (short form) - Note Progress Note: no longer having bloody drainage from the trach ENT consult noted no fevers normal WBC gram stain of sputum _NO POLYS- suspect the organisms are what he is colonized with at the trach site Vital Signs Period Temp Pulse Resp BP Sys/Nails Pulse Ox Last 24 Hr 98.2 F-99.2 F 68-80 18-20 100-133/53-76 97-99 trach site- +thick secretions cor-rrr lungs clear CBC, BMP 08/25/17 07:00 08/25/17 07:00 a/p tracheitis/bronchitis suspect colonization of the trach site has improved on unasyn with resolution of bleeding and normal WBC ?role for mucomyst in this patient can switch to po augmentin in am Problem List - Problems (1) Tracheobronchitis Code(s): J40 - BRONCHITIS, NOT SPECIFIED ACUTE OR CHRONIC (2) COPD (chronic obstructive pulmonary disease) Code(s): J44.9 - CHRONIC OBSTRUCTIVE PULMONARY DISEASE, UNSPECIFIED
--- NOTE | 2017-08-25 15:58 | PN ---
Progress Note (short form) - Note Progress Note: VAscular Surgery Pt seen and examined. Pt with right heel ulcer. Foot is warm. Pt is bedridden. Need to protect heels. Please place heel pads. Bacitracin to ulcers on right foot daily. Gerry Larkin DO
[2017-08-26] MEDS: AMPICILLIN NA/SULBACTAM NA 1.5 GM in SODIUM CHLORIDE 100 ML IVPB SCH ×2 (02:37→08:39)
[2017-08-26] MEDS: METOCLOPRAMIDE HCL INJECTION 10 MG/2 ML VIAL IVPUSH SCH ×3 (02:37→17:23)
[2017-08-26] MEDS: POLYETHYLENE GLYCOL 3350 119 GM BTL GT SCH ×2 (09:18→21:53)
[2017-08-26] MEDS: FLUDROCORTISONE ACETATE 0.1 MG TABLET (FP) PEG SCH (09:18)
[2017-08-26] MEDS: ALBUTEROL SO4 0.083% IH SOL 2.5 MG/3 ML VIAL.NEB. NEB PRN (09:29)
[2017-08-26] MEDS: PANTOPRAZOLE SODIUM 40 MG VIAL IVPUSH SCH ×2 (10:34→21:53)
--- NOTE | 2017-08-26 11:06 | PN ---
Progress Note, Physician Chief Complaint: Events noted Spoke with Dr Hoyos Pt awake s/p trach no secretions from trach - Current Medication List Current Medications: Active Medications Acetaminophen (Tylenol -) 650 mg PO Q4H PRN PRN Reason: BACK PAIN Albuterol Sulfate (Ventolin 0.083% Nebulizer Soln -) 1 amp NEB Q4H PRN PRN Reason: SHORT OF BREATH/WHEEZING Last Admin: 08/26/17 09:29 Dose: 1 amp Fludrocortisone Acetate (Florinef -) 0.1 mg PEG DAILY [facility] Last Admin: 08/26/17 09:18 Dose: 0.1 mg Ampicillin Sodium/Sulbactam (Sodium 1.5 gm/ Sodium Chloride) 100 mls @ 200 mls/ hr IVPB Q6H-IV [facility] Last Admin: 08/26/17 08:39 Dose: 200 mls/hr Metoclopramide HCl (Reglan Injection -) 10 mg IVPUSH Q8H-IV [facility] Last Admin: 08/26/17 10:40 Dose: 10 mg Pantoprazole Sodium (Protonix Iv) 40 mg IVPUSH BID [facility] Last Admin: 08/26/17 10:34 Dose: 40 mg Polyethylene Glycol (Miralax (For Daily Use) -) 34 gm GT BID [facility] Last Admin: 08/26/17 09:18 Dose: 34 gm - Objective Vital Signs: Vital Signs Temperature 98.2 F 08/26/17 09:54 Pulse Rate 86 08/26/17 09:54 Respiratory Rate 18 08/26/17 09:54 Blood Pressure 117/65 08/26/17 09:54 O2 Sat by Pulse Oximetry (%) 95 08/26/17 09:06 Constitutional: Yes: No Distress Cardiovascular: Yes: Regular Rate and Rhythm Respiratory: Yes: Diminished Gastrointestinal: Yes: Normal Bowel Sounds, Soft, Other (GT+). No: Distention, Tenderness Extremities: Yes: Other (right foot dressing in place) Edema: Yes Edema: LLE: Trace, RLE: Trace Labs: CBC, BMP 08/25/17 07:00 08/25/17 07:00 INR, PTT INR 1.22 (0.82-1.09) H 08/22/17 07:30 Problem List - Problems (1) COPD (chronic obstructive pulmonary disease) Code(s): J44.9 - CHRONIC OBSTRUCTIVE PULMONARY DISEASE, UNSPECIFIED (2) Functional quadriplegia Code(s): R53.2 - FUNCTIONAL QUADRIPLEGIA (3) PEG (percutaneous endoscopic gastrostomy) status Code(s): Z93.1 - GASTROSTOMY STATUS (4) Tracheobronchitis Code(s): J40 - BRONCHITIS, NOT SPECIFIED ACUTE OR CHRONIC Assessment/Plan Assessment/Plan Abx.-- will twisting frame changer to Augmentin via GT per ID-- no fever , no leucocytosis frequent suctioning. sputum cultures-pseudomonas would care consult-noted-- Bacitracin to be applied local care. dc planning tomorrow in AM pt is total care- functional quadriplegia.
--- NOTE | 2017-08-26 11:34 | PN ---
Progress Note (short form) - Note Progress Note: PULMONARY Pt nonverbal. Appears comfortable. No fevers recorded. Last Vital Signs Temp Pulse Resp BP Pulse Ox 98.2 F 86 18 117/65 95 08/26/17 09:54 08/26/17 09:54 08/26/17 09:54 08/26/17 09:54 08/26/17 09:06 Gen: breathing nonlabored on trach collar Heart: RRR Lung: scattered rhonchi Abd: soft, nontender Ext: no edema CBC, BMP 08/25/17 07:00 08/25/17 07:00 Active Medications Acetaminophen (Tylenol -) 650 mg PO Q4H PRN PRN Reason: BACK PAIN Albuterol Sulfate (Ventolin 0.083% Nebulizer Soln -) 1 amp NEB Q4H PRN PRN Reason: SHORT OF BREATH/WHEEZING Last Admin: 08/26/17 09:29 Dose: 1 amp Amoxicillin/Clavulanate Potassium (Augmentin 600 Mg/5 Ml Oral Suspension -) 600 mg GT BID@0800,1730 [facility] Bacitracin (Bacitracin -) 1 applic TP BID [facility] Fludrocortisone Acetate (Florinef -) 0.1 mg PEG DAILY [facility] Last Admin: 08/26/17 09:18 Dose: 0.1 mg Metoclopramide HCl (Reglan Injection -) 10 mg IVPUSH Q8H-IV [facility] Last Admin: 08/26/17 10:40 Dose: 10 mg Pantoprazole Sodium (Protonix Iv) 40 mg IVPUSH BID [facility] Last Admin: 08/26/17 10:34 Dose: 40 mg Polyethylene Glycol (Miralax (For Daily Use) -) 34 gm GT BID [facility] Last Admin: 08/26/17 09:18 Dose: 34 gm A/P Acute Tracheobronchitis Chronic Respiratory Failure s/p Tracheostomy COPD BPH - complete antibiotics - inhaled bronchodilators as needed - O2 to keep Spo2 >90% - DVT prophylaxis - d/c planning
[2017-08-26] MEDS: BACITRACIN 15 GM TUBE TOPICAL OINTMENT TP SCH ×2 (14:34→21:52)
[2017-08-26] MEDS: AMOX TR/POTASSIUM CLAVULANATE 600 MG/5 ML GT SCH ×2 (18:00→20:27)
[2017-08-27] MEDS: METOCLOPRAMIDE HCL INJECTION 10 MG/2 ML VIAL IVPUSH SCH ×2 (01:52→10:20)
[2017-08-27] MEDS: ALBUTEROL SO4 0.083% IH SOL 2.5 MG/3 ML VIAL.NEB. NEB PRN (06:00)
[2017-08-27] MEDS: AMOX TR/POTASSIUM CLAVULANATE 600 MG/5 ML GT SCH (08:00)
[2017-08-27] MEDS ORDERED: PT OWN MED DRAWER 7, Y5N ONE (10:18)
[2017-08-27] MEDS: BACITRACIN 15 GM TUBE TOPICAL OINTMENT TP SCH (10:19)
[2017-08-27] MEDS: PANTOPRAZOLE SODIUM 40 MG VIAL IVPUSH SCH (10:19)
[2017-08-27] MEDS: POLYETHYLENE GLYCOL 3350 119 GM BTL GT SCH (10:20)
--- NOTE | 2017-08-27 11:55 | DS ---
Physical Examination Vital Signs: Vital Signs Temperature 98.6 F 08/27/17 10:00 Pulse Rate 75 08/27/17 10:00 Respiratory Rate 20 08/27/17 10:00 Blood Pressure 99/74 08/27/17 10:00 O2 Sat by Pulse Oximetry (%) 96 08/27/17 07:42 Constitutional: Yes: No Distress, Calm HENT: Yes: Other (trach+) Cardiovascular: Yes: Regular Rate and Rhythm Respiratory: Yes: Diminished Gastrointestinal: Yes: Normal Bowel Sounds, Soft, Other (gt+). No: Tenderness Edema: No Labs: CBC, BMP 08/25/17 07:00 08/25/17 07:00 Discharge Summary Reason For Visit: HEMOPTYSIS,TRACHEOSTEMY INFECTION Current Active Problems COPD (chronic obstructive pulmonary disease) (Acute) Functional quadriplegia (Acute) PEG (percutaneous endoscopic gastrostomy) status (Acute) Tracheobronchitis (Acute) Tracheostomy infection (Acute) Hospital Course: Admitted for drainage and blood from tracheostomy Non verbal sent from NH seen by ID, pulmonary, GI and ENT ID-- placed on iv antibiotics for bronchitis and tracheobronchitis Pulm-- pt on Nebs , O2 GI-- pt has impacted stool-- now on bowel regimen and moving his bowels ENT-- recommended soft suctioning Pt improved, decreased secretion, afebrile Stable for dc to [place] on GT Augmentin time spent for preparing discharge-- 30 min Condition: Improved - Instructions Referrals: Mansoor Gonzalez MD [Primary Care Provider] - Disposition: [facility]FWAY FACILITY - Home Medications Comprehensive Discharge Medication List: Ambulatory Orders Acetylcysteine 20% [Mucomyst 20 Oral / INH Use Only*] 200 mg IH BID 08/21/17 Albuterol 2.5/Ipratropium 0.5 [Duoneb -] 1 neb NEB Q4H 08/21/17 Aspirin 81 mg PEG DAILY 08/21/17 Heparin - 5,000 unit SQ BID 08/21/17 Lactulose 10 gm PEG HS 08/21/17 Amoxicillin/Potassium Clav [Augmentin ES Suspension] 600 mg PEG BID #50 ml 08/26 Bacitracin - [Bacitracin Topical Ointment -] 1 applic TP BID #1 tube 08/26/17 Fludrocortisone Acetate [Florinef -] 0.1 mg PEG DAILY #60 tablet 08/26/17
[2017-08-27] MEDS: FLUDROCORTISONE ACETATE 0.1 MG TABLET (FP) PEG SCH (12:58)
--- NOTE | 2017-08-27 13:51 | PN ---
Progress Note, Physician History of Present Illness: PULMONARY COMFORTABLE,NO DISTRESS - Current Medication List Current Medications: Active Medications Acetaminophen (Tylenol -) 650 mg PO Q4H PRN PRN Reason: BACK PAIN Albuterol Sulfate (Ventolin 0.083% Nebulizer Soln -) 1 amp NEB Q4H PRN PRN Reason: SHORT OF BREATH/WHEEZING Last Admin: 08/27/17 06:00 Dose: 1 amp Amoxicillin/Clavulanate Potassium (Augmentin 600 Mg/5 Ml Oral Suspension -) 600 mg GT BID@0800,1730 [facility] Last Admin: 08/27/17 08:00 Dose: 600 mg Bacitracin (Bacitracin -) 1 applic TP BID [facility] Last Admin: 08/27/17 10:19 Dose: 1 applic Fludrocortisone Acetate (Florinef -) 0.1 mg PEG DAILY [facility] Last Admin: 08/27/17 12:58 Dose: 0.1 mg Metoclopramide HCl (Reglan Injection -) 10 mg IVPUSH Q8H-IV [facility] Last Admin: 08/27/17 10:20 Dose: 10 mg Pantoprazole Sodium (Protonix Iv) 40 mg IVPUSH BID [facility] Last Admin: 08/27/17 10:19 Dose: 40 mg Polyethylene Glycol (Miralax (For Daily Use) -) 34 gm GT BID [facility] Last Admin: 08/27/17 10:20 Dose: 34 gm - Objective Vital Signs: Vital Signs Temperature 98.6 F 08/27/17 10:00 Pulse Rate 75 08/27/17 10:00 Respiratory Rate 20 08/27/17 10:00 Blood Pressure 99/74 08/27/17 10:00 O2 Sat by Pulse Oximetry (%) 96 08/27/17 07:42 Constitutional: Yes: No Distress, Thin Eyes: Yes: WNL HENT: Yes: WNL Neck: Yes: Supple (TRACH) Cardiovascular: Yes: Regular Rate and Rhythm, S1, S2 Respiratory: Yes: Diminished Gastrointestinal: Yes: Normal Bowel Sounds, Soft Extremities: Yes: WNL Edema: No Labs: CBC, BMP Problem List - Problems (1) Tracheobronchitis Code(s): J40 - BRONCHITIS, NOT SPECIFIED ACUTE OR CHRONIC (2) PEG (percutaneous endoscopic gastrostomy) status Code(s): Z93.1 - GASTROSTOMY STATUS (3) Tracheostomy infection Code(s): J95.02 - INFECTION OF TRACHEOSTOMY STOMA (4) COPD (chronic obstructive pulmonary disease) Code(s): J44.9 - CHRONIC OBSTRUCTIVE PULMONARY DISEASE, UNSPECIFIED Assessment/Plan MP ACUTE TRACHEOBRONCHITIS S/P TRACH COPD BPH PLAN ANTIBIOTICS O2 BRONCH[address] NIELSEN Problem List - Problems (1) Tracheobronchitis Code(s): J40 - BRONCHITIS, NOT SPECIFIED ACUTE OR CHRONIC (2) PEG (percutaneous endoscopic gastrostomy) status Code(s): Z93.1 - GASTROSTOMY STATUS (3) Tracheostomy infection Code(s): J95.02 - INFECTION OF TRACHEOSTOMY STOMA (4) COPD (chronic obstructive pulmonary disease) Code(s): J44.9 - CHRONIC OBSTRUCTIVE PULMONARY DISEASE, UNSPECIFIED
[2017-08-27 15:28] VITALS: BP 92/60; PULSE 76; TEMP 98.9
== END 2017-08-27 17:05 | DRG 205 ==
LOC: JER 11:46 → JERBED 15:27 → OBSVTOIN 16:48 → J5S 08-22 01:26
PROVIDERS: ADMIT Internal Medicine; ATTEND Internal Medicine
PROC: 3E0G76Z Introduction of Nutritional Substance into Upper GI, Via Natural or Artificial Opening (ICD-10-PCS; principal; 2017-08-21)
DX: J95.02 Infection of tracheostomy stoma (principal); R53.2 Functional quadriplegia; J96.10 Chronic respiratory failure, unspecified whether with hypoxia or hypercapnia; N40.0 Benign prostatic hyperplasia without lower urinary tract symptoms; J20.9 Acute bronchitis, unspecified; J44.9 Chronic obstructive pulmonary disease, unspecified; Z93.1 Gastrostomy status; Z74.01 Bed confinement status; Y83.8 Other surgical procedures as the cause of abnormal reaction of the patient, or of later complication, without mention of misadventure at the time of the procedure
CPT/HCPCS: 36415; 71045-TC; 74018-TC-FY; 80053; 82271; 82550; 82803; 83605; 84484; 85025; 85610; 85730; 86850; 86900; 86901; 87040; 87070; 87186; 87205; 90670; 93005; 93010; 94640; 97161-GP; 99284-25; G0378